=== PATIENT | female | born 1960 | race Caucasian/White ===

== ENCOUNTER 2023-06-13 09:24 | Emergency (ER) | payer SELFPAY ==
[2023-06-13 09:52] LABS: Absolute Lymphocytes (CBC) 2.6 K/uL (0.7-4.9); Hematocrit 39.2 % (36.0-45.0); Lymphocytes % 30.3 % (15.3-44.8); MCV 90.3 fL (80-100); MPV 6.7 fL (7.6-11.3); Platelets 289 thou/uL (152-406); RBC Red Blood Cell Count 4.34 M/uL (3.86-4.86)
--- NOTE | 2023-06-13 09:57 | RAD REPORT ---
EXAM DESCRIPTION: CT - Ct Stroke Brain Wo Cont - 06/13/2023 9:48 am CLINICAL HISTORY: DIZZINESS COMPARISON: No comparisons TECHNIQUE: Noncontrast head CT images were obtained without IV contrast. Multiplanar reformats were generated and reviewed. All CT scans are performed using dose optimization technique as appropriate and may include automated exposure control or mA/KV adjustment according to patient size. FINDINGS: No intracranial hemorrhage, mass, or edema. Midline structures are unremarkable. Normal ventricular caliber for age. Trevizo-white matter differentiation is preserved, without evidence of acute infarct. No abnormal extra- axial fluid collections. Mastoid air cells and visualized portions of the paranasal sinuses are clear. No acute bony findings. IMPRESSION: No evidence of an acute intracranial process. The findings were communicated to Sara Lang on 06/13/2023 at 09:53 hours. taty
[2023-06-13 10:10] LABS: Albumin 3.8 g/dL (3.4-5.0); Bilirubin Direct 0.1 mg/dL (0-0.2); Bilirubin Indirect, Calculated 0.3 mg/dL (0.2-0.8); Bilirubin Total 0.4 mg/dL (0.2-1.0); Protein, Total 7.3 g/dL (6.4-8.2)
[2023-06-13] MEDS ORDERED: NA CHLORIDE 0.9% 1,000 ML ONE (10:14)
[2023-06-13] MEDS ORDERED: MECLIZINE HCL 12.5 MG TAB ONE (10:14)
[2023-06-13] MEDS ORDERED: ONDANSETRON 4 MG/2 ML VIAL ONE (10:14)
--- NOTE | 2023-06-13 10:18 | RAD REPORT ---
EXAM DESCRIPTION: CT - C Spine Wo Con - 06/13/2023 9:49 am CLINICAL HISTORY: Dizziness COMPARISON: None. TECHNIQUE: Axial thin cut noncontrast CT images of the cervical spine were obtained with sagittal an d coronal reconstruction images generated and reviewed. All CT scans are performed using dose optimization technique as appropriate and may include automated exposure control or mA/KV adjustment according to patient size. FINDINGS: Cervical body height are preserved. Straightening of normal cervical lordosis which may be positional or secondary to muscle spasm. Grade 1 anterolisthesis of C3 over C4 measuring 2-3 millimeter. This is secondary to multilevel facet changes most pronounced on the left at C3-4 and C4-5. Other uncovertebral joint and facet arthropath y noted, contributing to at least moderate neural foraminal narrowing on the left at C3-4 and bilater ally at C6-7. Disc height loss noted at C5-6 and C6-7. No fracture or acute bony abnormality. No paraspinal mass or hematoma. IMPRESSION: No acute osseus abnormality. Spondylotic changes as above, with degrees of foraminal na rrowing most pronounced at C3-4 on the left and at C6-7 bilaterally.
[2023-06-13] MEDS ORDERED: FENTANYL CITR 100 MCG/2 ML ONE (10:43)
--- NOTE | 2023-06-13 10:52 | RAD REPORT ---
EXAM DESCRIPTION: RADChest Single View06/13/2023 10:42 am CLINICAL HISTORY: MALAISE COMPARISON: Ct Stroke Brain Wo Cont dated 06/13/2023 TECHNIQUE: Portable AP view of the chest. FINDINGS: The lungs are clear. No pneumothorax or effusion. The cardiomediastinal contours are unre markable. IMPRESSION: No acute cardiopulmonary process.
--- NOTE | 2023-06-13 11:11 | RAD REPORT ---
EXAM DESCRIPTION: CT - Head angio - 06/13/2023 10:46 am CLINICAL HISTORY: Dizziness;Numbness COMPARISON: Ct Stroke Brain Wo Cont dated 06/13/2023 TECHNIQUE: Axial CT angiography images of the head was performed with multiplanar and maximum intens ity projection reconstructions. Images performed following intravenous administration of 100mL Isovue 370. All CT scans are performed using dose optimization technique as appropriate and may include automated exposure control or mA/KV adjustment according to patient size. FINDINGS: No evidence of large vessel occlusion. No evidence of aneurysm or dissection flap is detec karen. No flow-limiting stenosis or vascular malformation identified. Antegrade flow is seen in the vertebral arteries. The vertebral arteries are codominant. The visualized dural venous sinuses are grossly patent. IMPRESSION: No evidence of large vessel occlusion or flow-limiting stenosis.
--- NOTE | 2023-06-13 11:17 | RAD REPORT ---
EXAM DESCRIPTION: CT - Neck Angio - 06/13/2023 10:46 am CLINICAL HISTORY: Headache;Pain;Trauma COMPARISON: C Spine Wo Con dated 06/13/2023 TECHNIQUE: Axial CT angiography images of the head was performed with multiplanar and maximum intens ity projection reconstructions. Images performed following intravenous administration of 100mL Isovue 370. All CT scans are performed using dose optimization technique as appropriate and may include automated exposure control or mA/KV adjustment according to patient size. Quantification of carotid stenosis, if any, is performed according to NASCET criteria. FINDINGS: A left aortic arch is identified with normal three vessel configuration of the great vesse ls. No significant flow abnormality is seen of the common carotid bilaterally. No significant stenosis is identified involving the cervical segments of both internal carotid arteri es. Normal flow is seen within both vertebral arteries. [id number] cervical spine degenerative changes. IMPRESSION: No significant flow abnormality of the neck vessels is identified. CAROTID STENOSIS REFERENCE USING NASCET CRITERIA: % ICA stenosis = (1 - narrowest ICA diameter/diameter of distal cervical ICA) x 100. Mild - <50% stenosis. Moderate - 50-69% stenosis. Severe - 70-94% stenosis. Near occlusion - 95-99% stenosis. Occluded - 100% stenosis.
--- NOTE | 2023-06-13 11:30 | EDPHYS ---
Physician Documentation [facility] Name: Yin Chowdary Age: 62 yrs Sex: Female : 1960 Arrival Date: 06/13/2023 Time: 09:24 Bed 7 Private MD: ED Physician Gianni Gonzalez HPI: 06/13 09:30 This 62 yrs old Female presents to ER via Unassigned with complaints of fall, head jh7 injury, dizziness. 09:30 The patient or guardian reports injury, pain, swelling. The complaints affect the right jh7 side of the back of head and right occipital area. Context of injury: The problem was sustained at home, resulted from a fall, from a standing position. Onset: The symptoms/episode began/occurred acutely. Associated signs and symptoms: Loss of consciousness: This patient did not experience any loss of consciousness. Pertinent positives: headache, nausea, Pertinent negatives: vomiting, weakness in extremities, generalized weakness. Associated signs and symptoms: Pertinent positives: head injury, near-syncope. Patient's baseline: Neuro: alert and fully oriented, Motor: no deficits, Ambulation: unable to walk, Unable to ambulate due to severe dizziness, Speech: normal, The patient has a previous history of hypotension. 62-year-old female who presents to the ER after a fall in the shower 20 minutes ago. The patient reports that she looked up while rinsing her hair and suddenly became severely dizzy. She denies LOC but states that the dizziness caused her to fall, hitting the right occipital portion of her head. She states that she cannot see out of her left eye and that she sees a "white ball". States that dizziness is reproduced by opening her eyes, head movements, and any position changes. She states that she has not vomited but feels extremely nauseous. Denies having a PCP. Reports a history of hypertension but does not take any medications.. Historical: - Allergies: 09:41 No Known Allergies; ph - PMHx: 09:41 Low BP; ph - Immunization history:: Adult Immunizations unknown. - Social history:: Smoking status: unknown. ROS: 09:30 Constitutional: Negative for fever, chills, and weight loss, Eyes: Negative for injury, jh7 pain, redness, and discharge, ENT: Negative for injury, pain, and discharge, 09:30 Cardiovascular: Negative for chest pain, palpitations, and edema, Respiratory: Negative for shortness of breath, cough, wheezing, and pleuritic chest pain, Abdomen/GI: Negative for abdominal pain, nausea, vomiting, diarrhea, and constipation, Back: Negative for injury and pain, MS/Extremity: Negative for injury and deformity, Skin: Negative for injury, rash, and discoloration, 09:30 Neck: Positive for pain with movement, bony tenderness, 09:30 Neuro: Positive for dizziness, gait disturbance, headache, near syncope, visual changes, Negative for altered mental status, numbness, seizure activity, speech changes, tingling, tremor, weakness, 09:30 All other systems are negative, Exam: 09:30 Eyes: Pupils equal round and reactive to light, extra-ocular motions intact. Lids and jh7 lashes normal. Conjunctiva and sclera are non-icteric and not injected. Cornea within normal limits. Periorbital areas with no swelling, redness, or edema. ENT: Nares patent. No nasal discharge, no septal abnormalities noted. Tympanic membranes are normal and external auditory canals are clear. Oropharynx with no redness, swelling, or masses, exudates, or evidence of obstruction, uvula midline. Mucous membranes moist. 09:30 Cardiovascular: Regular rate and rhythm with a normal S1 and S2. No gallops, murmurs, or rubs. Normal PMI, no JVD. No pulse deficits. Respiratory: Lungs have equal breath sounds bilaterally, clear to auscultation and percussion. No rales, rhonchi or wheezes noted. No increased work of breathing, no retractions or nasal flaring. Abdomen/GI: Soft, non-tender, with normal bowel sounds. No distension or tympany. No guarding or rebound. No evidence of tenderness throughout. Back: No spinal tenderness. No costovertebral tenderness. Full range of motion. Skin: Warm, dry with normal turgor. Normal color with no rashes, no lesions, and no evidence of cellulitis. MS/ Extremity: Pulses equal, no cyanosis. Neurovascular intact. Full, normal range of motion. 09:30 Constitutional: The patient appears alert, awake, uncomfortable, 09:30 Head/face: Noted is hematoma, that is moderate, of the right occipital area, 09:30 Neck: C-spine: vertebral tenderness, that is mild, appreciated at C6 and C7, ROM/movement: limited range of motion, that is mild, in any direction, 09:30 Neuro: Orientation: is normal, to person, place, time \\T\\ situation. Mentation: is normal, Memory: is normal, Cranial nerves: Speech is clear and appropriate. Unable to test visual buck due to severe dizziness when the patient opens her eyes., Cerebellar function: unable to test, Patient states she cannot participate or open her eyes due to severe dizziness, Motor: is normal, Sensation: is normal, Gait: unable to assess, Patient states she is unable to walk due to dizziness, Vital Signs: 09:35 BP 138 / 89; Pulse 115; Resp 24; Temp 97; Pulse Ox 99% on R/A; Weight 65.77 kg; Height ph 5 ft. 6 in. ; 11:07 BP 124 / 72; Pulse 82; Resp 16 S; Temp 97.7; Pulse Ox 100% on R/A; kc6 12:03 BP 133 / 68; Pulse 78; Resp 18; Temp 98; Pulse Ox 99% on R/A; ph 09:35 Body Mass Index 23.40 (65.77 kg, 167.64 cm) ph NIH Stroke Scale Scores: 09:30 NIHSS Score: 1 jh7 09:32 NIHSS Score: 1 ph [place] Coma Score: 09:30 Eye Response: spontaneous(4). Motor Response: obeys commands(6). Verbal Response: jh7 oriented(5). Total: 15. 11:49 Eye Response: spontaneous(4). Motor Response: obeys commands(6). Verbal Response: jh7 oriented(5). Total: 15. MDM: 09:36 Patient medically screened. jh7 10:01 ED course: Spoke to the patient's daughter who reports that her mother just told her jh7 that symptoms actually started last night. The patient states that she became dizzy and fell in the kitchen as well.. 11:49 Differential diagnosis: Contusion of Hematoma on Intracranial bleed- Acute CVA, TIA, jh7 vertigo. Differential diagnosis: hypovolemia, idiopathic dizziness, near-syncope. Data reviewed: vital signs, nurses notes, lab test result(s), EKG, radiologic studies, CT scan, plain films. I considered the following discharge prescriptions or medication management in the emergency department Medications were administered in the Emergency Department. See MAR. Independent interpretation of the following test(s) in the Emergency Department EKG: See my EKG interpretation above. Discussion of test interpretation with radiology: I had a discussion with radiology regarding a test interpretation. Radiologist called to inform no acute findings on CT brain. Historians other than the Patient: Friend: . Counseling: I had a detailed discussion with the patient and/or guardian regarding the historical points, exam findings, and any diagnostic results supporting the discharge/admit diagnosis, the need for outpatient follow up, Ophthalmology, If visual changes persist, to return to the emergency department if symptoms worsen or persist or if there are any questions or concerns that arise at home. Response to treatment: the patient's symptoms have markedly improved after treatment. ED course: The patient's symptoms nearly completely resolved after IV fluids and medication administration. She was able to ambulate with very little difficulty. She states that the vision in her left eye significantly improved and that she only had slight blurriness. If her symptoms return, or visual changes persist, ophthalmology follow-up was recommended. Educated the patient on strokelike symptoms, and if she experiences any of these, she should return to the ER immediately for evaluation.. 10 09:35 Order name: Basic Metabolic Panel; Complete Time: 10:11 [facility] 06/13 09:35 Order name: CBC with Diff; Complete Time: 09:59 7 06/13 09:35 Order name: LFT's; Complete Time: 10:11 [facility] 06/13 09:35 Order name: Magnesium; Complete Time: 10:11 [facility] 06/13 09:35 Order name: NT PRO-BNP; Complete Time: 10:11 [facility] 06/13 09:35 Order name: PT-INR; Complete Time: 09:59 7 06/13 09:35 Order name: Troponin HS; Complete Time: 10:11 [facility] 06/13 09:46 Order name: Glucose, Ancillary Testing; Complete Time: 09:51 EDMS 06/13 09:35 Order name: XRAY Chest (1 view); Complete Time: 11:07 [facility] 06/13 09:40 Order name: Ct Stroke Brain Wo Cont; Complete Time: 09:59 EDMS 06/13 09:41 Order name: C Spine Wo Con; Complete Time: 10:18 EDMS 06/13 10:18 Order name: CT Head Angio; Complete Time: 11:22 [facility] 06/13 10:18 Order name: CT Neck Angio; Complete Time: 11:22 [facility] 06/13 09:35 Order name: EKG; Complete Time: 09:36 [facility] 06/13 09:35 Order name: Cardiac monitoring; Complete Time: 09:53 [facility] 06/13 09:35 Order name: EKG - Nurse/Tech; Complete Time: 09:53 [facility] 06/13 09:35 Order name: IV Saline Lock; Complete Time: 09:48 [facility] 06/13 09:35 Order name: Labs collected and sent; Complete Time: 09:48 [facility] 06/13 09:35 Order name: O2 Per Protocol; Complete Time: 09:48 [facility] 06/13 09:35 Order name: O2 Sat Monitoring; Complete Time: 09:48 [facility] 06/13 09:36 Order name: FSBS; Complete Time: 09:40 [facility] 06/13 10:53 Order name: Recheck Vital Signs; Complete Time: 11:08 [facility] 06/13 11:28 Order name: Misc. Order: ambulate patient; Complete Time: 11:40 7 EC:38 Rate is 108 beats/min. Rhythm is regular. QRS [place] is Normal. OR interval is normal at jh7 154 msec. QRS interval is normal at 78 msec. QT interval is normal at 354 msec. No Q waves. T waves are Normal. No ST changes noted. Clinical impression: Sinus tachycardia. Administered Medications: 09:40 Drug: Ondansetron IVP 4 mg IVP once; over 2 minutes Route: IVP; Site: left antecubital; ph 10:05 Follow up: Response: No adverse reaction; Nausea is decreased; Vomiting decreased kc6 10:24 Drug: NS 0.9% IV 1000 ml IV at 1 bolus Per protocol; 1000 mL bolus Route: IV; Rate: 1 ph bolus; Site: left antecubital; 11:08 Follow up: Response: No adverse reaction; IV Status: Completed infusion; IV Intake: kc6 1000ml 10:24 Drug: Meclizine PO 25 mg PO once Route: PO; ph 11:08 Follow up: Response: No adverse reaction kc6 10:34 Drug: fentaNYL (PF) IVP 50 mcg IVP once Route: IVP; Site: left antecubital; kc6 11:08 Follow up: Response: No adverse reaction; Pain is decreased kc6 Point of Care Testing: Blood Glucose: 09:37 Blood Glucose: 74 mg/dL; ph Ranges: Critical Glucose Levels:Adult <50 mg/dl or >400 mg/dl <40 mg/dl or >180 mg/dl Disposition: 10:59 I was immediately available on-site in the Emergency Department for consultation in the tx3 care of the patient. Disposition Summary: 06/13/23 11:29 Discharge Ordered Notes: Location: Home [facility] Problem: new [facility] Symptoms: have improved [facility] Condition: Stable [facility] Diagnosis - Other peripheral vertigo, left ear [facility] - Contusion of scalp [facility] Followup: [facility] - With: Private Physician - When: 2 - 3 days - Reason: Recheck today's complaints Discharge Instructions: - Discharge Summary Sheet [facility] - Benign Positional Vertigo [facility] - Dizziness [facility] - Vertigo [facility] Forms: - Medication Reconciliation Form [facility] - Thank You Letter [facility] - Patient Portal Instructions [facility] - Leadership Thank You Letter [facility] Prescriptions: - Meclizine 25 mg Oral Tablet - take 1 tablet ORAL route every 8 hours As needed; 30 tablet; Refills: 0, jh7 Product Selection Permitted NIH Stroke Scale - NIH Stroke Score Date: 06/13/2023 Time: 09:30 Total Score = 1 10. Dysarthria (speech clarity - read or repeat words) - 0(Normal) 11. Extinction and Inattention (visual/tactile/auditory/spatial/personal) - 0(No abnormality) 1a. Level of Consciousness (LOC) - 0(Alert) 1b. Level of Consciousness (LOC) (Month \\T\\ Age) - 0(Both) 1c. LOC Commands (Open \\T\\ Closes Eyes/Pantograph I Engraver) - 0(Both) 2. Best Gaze (Lateral Gaze Paresis) - 0(Normal) 3. Visual Field Loss - 1(Partial hemianopia) 4. Facial Palsy - 0(Normal) 5a. Left Arm: Motor (10-second hold) - 0(No drift) 5b. Right Arm: Motor (10-second hold) - 0(No drift) 6a. Left Leg: Motor (5-second hold - always test supine) - 0(No drift) 6b. Right Leg: Motor (5-second hold - always test supine) - 0(No drift) 7. Limb Ataxia (finger/nose \\T\\ heel/hendrickson - test with eyes open) - 0(Absent) 8. Sensory Loss (pinprick arms/legs/face) - 0(Normal) 9. Best Language: Aphasia (description/naming/reading) - 0(No aphasia) Initials: jh7 NIH Stroke Scale - NIH Stroke Score Date: 06/13/2023 Time: 09:32 Total Score = 1 10. Dysarthria (speech clarity - read or repeat words) - 0(Normal) 11. Extinction and Inattention (visual/tactile/auditory/spatial/personal) - 0(No abnormality) 1a. Level of Consciousness (LOC) - 0(Alert) 1b. Level of Consciousness (LOC) (Month \\T\\ Age) - 0(Both) 1c. LOC Commands (Open \\T\\ Closes Eyes/Pantograph I Engraver) - 0(Both) 2. Best Gaze (Lateral Gaze Paresis) - 0(Normal) 3. Visual Field Loss - 1(Partial hemianopia) 4. Facial Palsy - 0(Normal) 5a. Left Arm: Motor (10-second hold) - 0(No drift) 5b. Right Arm: Motor (10-second hold) - 0(No drift) 6a. Left Leg: Motor (5-second hold - always test supine) - 0(No drift) 6b. Right Leg: Motor (5-second hold - always test supine) - 0(No drift) 7. Limb Ataxia (finger/nose \\T\\ heel/hendrickson - test with eyes open) - 0(Absent) 8. Sensory Loss (pinprick arms/legs/face) - 0(Normal) 9. Best Language: Aphasia (description/naming/reading) - 0(No aphasia) Initials: ph Signatures: Dispatcher [employer] EDMS Farida Leo, RN RN ph Gianni Gonzalez DO DO ms3 Sara Castillo, COP EXAMINER COP EXAMINER jh7 Stefania Shay RN RN kc6 Corrections: (The following items were deleted from the chart) 09:39 09:36 Head C Spine MPR Wo Con+CT.RAD.BRZ ordered. EDMS EDMS 09:41 09:41 PMHx: None; ph ph
--- NOTE | 2023-06-13 11:30 | ER ---
Nurse's Notes [facility] Name: Yin Chowdary Age: 62 yrs Sex: Female : 1960 Arrival Date: 06/13/2023 Time: 09:24 Bed 7 Private MD: Diagnosis: Other peripheral vertigo, left ear;Contusion of scalp Presentation: 06/13 09:35 Chief complaint: Patient states: Sudden onset of dizziness while taking a shower, states, " I tilted my head back to rinse my hair and got dizzy" Fell in shower and hit back of head, no LOC, c/o dizziness, nausea, headache to L side of head, blurred vision in L eye, states, " There is a white spot in my eye". Coronavirus screen: Vaccine status: Patient reports receiving the 2nd dose of the covid vaccine. Ebola Screen: No symptoms or risks identified at this time. Initial Sepsis Screen: Does the patient meet any 2 criteria? No. Patient's initial sepsis screen is negative. Does the patient have a suspected source of infection? No. Patient's initial sepsis screen is negative. Risk Assessment: Do you want to hurt yourself or someone else? Patient reports no desire to harm self or others. 09:35 Method Of Arrival: Wheelchair 09:35 Acuity: SHIELA 2 ph 09:42 No acute neurological deficit is noted. Pre-hospital glucose is not applicable to this patient. Onset of symptoms was June 13, 2023. Triage Assessment: 09:43 The onset of the patients symptoms was less than three hours ago. General: Appears in ph no apparent distress. uncomfortable, Behavior is cooperative, anxious. Pain: Complains of pain in left frontal area, left temporal area and left ear. Neuro: Level of Consciousness is awake, alert, obeys commands, Oriented to person, place, time, situation, Hogshead Mat Inspector are equal bilaterally Moves all extremities. Speech is normal, Facial symmetry appears normal, Reports blurred vision in left eye dizziness, headache in left parietal area, frontal area, Denies weakness paresthesias numbness. Cardiovascular: Capillary refill < 3 seconds in bilateral fingers. Respiratory: Airway is patent Respiratory effort is even, unlabored. GI: Reports nausea. Derm: Skin is pink, warm \\T\\ dry. Injury Description: Head injury sustained to right occipital area. Stroke Activation: Symptom onset < 3 hours Physician: Stroke Attending; Name: ; Notified At: ; Arrived At: Physician: Chief Stroke Resident; Name: ; Notified At: ; Arrived At: Physician: Stroke Resident; Name: ; Notified At: ; Arrived At: Physician: ED Attending; Name: Lisa/Jonathan; Notified At: 09:35; Arrived At: 09:30 Physician: ED Resident; Name: ; Notified At: ; Arrived At: Historical: - Allergies: 09:41 No Known Allergies; ph - PMHx: :41 Low BP; ph - Immunization history:: Adult Immunizations unknown. - Social history:: Smoking status: unknown. Screenin:41 [facility] ED Fall Risk Assessment (Adult) History of falling in the last 3 months, ph including since admission No falls in past 3 months (0 pts) Confusion or Disorientation No (0 pts) Intoxicated or Sedated No (0 pts) Impaired Gait Yes (1 pt) Mobility Assist Device Used No (0 pt) Altered Elimination No (0 pt) Score/Fall Risk Level 0 - 2 = Low Risk Oriented to surroundings, Maintained a safe environment, Hourly rounding (assess needs \\T\\ fall precautionary measures) done. Abuse screen: Denies threats or abuse. Denies injuries from another. Nutritional screening: No deficits noted. Tuberculosis screening: No symptoms or risk factors identified. Assessment: 09:32 Reassessment: ERP at bedside to assess pt. ph 09:34 VAN Scoring: Arm Drift: Patients demonstrates NO arm weakness. Patient is VAN Negative. ph General:. 09:35 Reassessment: Activated code stroke. ph 09:40 Reassessment: Pt taken to CT via stretcher by NEVAEH Aguiar. ph 10:40 Reassessment: Patient appears in no apparent distress at this time. No changes from kc6 previously documented assessment. Patient and/or family updated on plan of care and expected duration. Pain level reassessed. Patient is alert, oriented x 3, equal unlabored respirations, skin warm/dry/pink. 11:40 Reassessment: Patient appears in no apparent distress at this time. Patient and/or ph family updated on plan of care and expected duration. Pain level reassessed. Patient is alert, oriented x 3, equal unlabored respirations, skin warm/dry/pink. Pt ambulated in hallway, reports slight dizziness but reports that symptoms have greatly improved Patient states feeling better. Vital Signs: 09:35 BP 138 / 89; Pulse 115; Resp 24; Temp 97; Pulse Ox 99% on R/A; Weight 65.77 kg; Height ph 5 ft. 6 in. ; 11:07 BP 124 / 72; Pulse 82; Resp 16 S; Temp 97.7; Pulse Ox 100% on R/A; kc6 12:03 BP 133 / 68; Pulse 78; Resp 18; Temp 98; Pulse Ox 99% on R/A; ph 09:35 Body Mass Index 23.40 (65.77 kg, 167.64 cm) ph [place] Coma Score: 09:30 Eye Response: spontaneous(4). Motor Response: obeys commands(6). Verbal Response: jh7 oriented(5). Total: 15. 11:49 Eye Response: spontaneous(4). Motor Response: obeys commands(6). Verbal Response: jh7 oriented(5). Total: 15. NIH Stroke Scale Scores: 09:30 NIHSS Score: 1 jh7 09:32 NIHSS Score: 1 ph ED Course: 09:25 Patient arrived in ED. em1 09:28 Gianni Gonzalez DO is Attending Physician. ms3 09:35 [facility] jh7 09:35 Farida Leo, RN is Primary Nurse. ph 09:36 Inserted saline lock: 22 gauge in left antecubital area, using aseptic technique. ph 09:38 Triage completed. ph 09:42 Arm band placed on. ph 09:42 Patient has correct armband on for positive identification. Call light in reach. Side ph rails up X 1. Client placed on continuous cardiac and pulse oximetry monitoring. NIBP monitoring applied. 09:50 Ct Stroke Brain Wo Cont In Process Unspecified. EDMS 09:50 C Spine Wo Con In Process Unspecified. EDMS 10:43 XRAY Chest (1 view) In Process Unspecified. EDMS 10:47 CT Head Angio In Process Unspecified. EDMS 10:47 CT Neck Angio In Process Unspecified. EDMS 12:03 No provider procedures requiring assistance completed. IV discontinued, intact, ph bleeding controlled, No redness/swelling at site. Pressure dressing applied. Administered Medications: 09:40 Drug: Ondansetron IVP 4 mg IVP once; over 2 minutes Route: IVP; Site: left antecubital; ph 10:05 Follow up: Response: No adverse reaction; Nausea is decreased; Vomiting decreased kc6 10:24 Drug: NS 0.9% IV 1000 ml IV at 1 bolus Per protocol; 1000 mL bolus Route: IV; Rate: 1 ph bolus; Site: left antecubital; 11:08 Follow up: Response: No adverse reaction; IV Status: Completed infusion; IV Intake: kc6 1000ml 10:24 Drug: Meclizine PO 25 mg PO once Route: PO; ph 11:08 Follow up: Response: No adverse reaction kc6 10:34 Drug: fentaNYL (PF) IVP 50 mcg IVP once Route: IVP; Site: left antecubital; kc6 11:08 Follow up: Response: No adverse reaction; Pain is decreased kc6 Medication: 09:47 VIS not applicable for this client. ph Point of Care Testing: Blood Glucose: 09:37 Blood Glucose: 74 mg/dL; ph Ranges: Intake: 11:08 IV: 1000ml; Total: 1000ml. kc6 Outcome: 11:29 Discharge ordered by jh7 12:03 Discharged to home via wheelchair, with family, ph 12:03 Condition: good 12:03 Discharge instructions given to patient, family, Instructed on discharge instructions, follow up and referral plans. medication usage, Demonstrated understanding of instructions, follow-up care, medications, Prescriptions given X 1, 12:04 Patient left the ED. NIH Stroke Scale - NIH Stroke Score Date: 06/13/2023 Time: 09:30 Total Score = 1 10. Dysarthria (speech clarity - read or repeat words) - 0(Normal) 11. Extinction and Inattention (visual/tactile/auditory/spatial/personal) - 0(No abnormality) 1a. Level of Consciousness (LOC) - 0(Alert) 1b. Level of Consciousness (LOC) (Month \\T\\ Age) - 0(Both) 1c. LOC Commands (Open \\T\\ Closes Eyes/Leather Coater) - 0(Both) 2. Best Gaze (Lateral Gaze Paresis) - 0(Normal) 3. Visual Field Loss - 1(Partial hemianopia) 4. Facial Palsy - 0(Normal) 5a. Left Arm: Motor (10-second hold) - 0(No drift) 5b. Right Arm: Motor (10-second hold) - 0(No drift) 6a. Left Leg: Motor (5-second hold - always test supine) - 0(No drift) 6b. Right Leg: Motor (5-second hold - always test supine) - 0(No drift) 7. Limb Ataxia (finger/nose \\T\\ heel/hendrickson - test with eyes open) - 0(Absent) 8. Sensory Loss (pinprick arms/legs/face) - 0(Normal) 9. Best Language: Aphasia (description/naming/reading) - 0(No aphasia) Initials: 7 NIH Stroke Scale - NIH Stroke Score Date: 06/13/2023 Time: 09:32 Total Score = 1 10. Dysarthria (speech clarity - read or repeat words) - 0(Normal) 11. Extinction and Inattention (visual/tactile/auditory/spatial/personal) - 0(No abnormality) 1a. Level of Consciousness (LOC) - 0(Alert) 1b. Level of Consciousness (LOC) (Month \\T\\ Age) - 0(Both) 1c. LOC Commands (Open \\T\\ Closes Eyes/Leather Coater) - 0(Both) 2. Best Gaze (Lateral Gaze Paresis) - 0(Normal) 3. Visual Field Loss - 1(Partial hemianopia) 4. Facial Palsy - 0(Normal) 5a. Left Arm: Motor (10-second hold) - 0(No drift) 5b. Right Arm: Motor (10-second hold) - 0(No drift) 6a. Left Leg: Motor (5-second hold - always test supine) - 0(No drift) 6b. Right Leg: Motor (5-second hold - always test supine) - 0(No drift) 7. Limb Ataxia (finger/nose \\T\\ heel/hendrickson - test with eyes open) - 0(Absent) 8. Sensory Loss (pinprick arms/legs/face) - 0(Normal) 9. Best Language: Aphasia (description/naming/reading) - 0(No aphasia) Initials: ph Signatures: Dispatcher [employer] El Villagran em1 Farida Leo RN RN ph Gonzalez, Gianni, DO ms3 Sara Castillo, INSTRUCTOR WATCH ASSEMBLY INSTRUCTOR WATCH ASSEMBLY jh7 Stefania Shay RN RN kc6 Corrections: (The following items were deleted from the chart) 09:41 09:41 PMHx: None; ph ph
[2023-06-13 12:36] VITALS: BP 133/68; TEMP 98; O2SAT 99
== END 2023-06-13 12:04 | disposition home or self-care (01) ==
LOC: ER 09:24
DX: H81.392 Other peripheral vertigo, left ear (principal); S00.03XA Contusion of scalp, initial encounter
CPT/HCPCS: 36415; 70450; 70496; 70498; 71045; 72125; 80048; 80076; 82947; 83735; 83880; 84484; 85025; 85610; 93005; 96361; 96374; 96375; 99285; J2405; J3010; J7030; J8597; Q9967

== ENCOUNTER 2023-08-07 06:45 | Emergency (ER) | payer SELFPAY ==
--- OUTSIDE RECORDS SUMMARY | 2023-08-07 06:49 | XMS REPORT | Continuity of Care Document ---
:1960 Author Organization [facility] t Address [address] [place] [address] Care Team Providers Name Role Phone Martin Reece MD Primary Care Physician [phone] Payers Payer Name Policy Type Policy Number Effective Date Expiration Date S ource Problems This patient has no known problems. Allergies, Adverse Reactions, Alerts Allergy Allergy Status Severity Reaction(s) Onset Inactive Treating Comm ents Source Name Type Date Date Clinician [place] DA Active [place] [facility] 10-28 [place] 00:00: [facility] Social History Social Habit Start Date Stop Date Quantity Comments Source Sexual orientation Method [facility] Sex Assigned At [birth year] [facility] 00:00:00 00:00:00 Smoking Status Start Date Stop Date Source Tobacco smoking consumption unknown [facility] Medications This patient has no known medications. Procedures This patient has no known procedures. Plan of Care Planned Activity Planned Date Details Comments Source Future Scheduled 2023-07-[address] [facility] Test 16:15:12 SCREENING [code = BREAST CANCER SCREENING] Future Scheduled 2023-07-[address] [facility] Test 16:15:12 malignant neoplasm of colon (procedure) [code = 625319617] Future Scheduled 2023-07-[address] [facility] Test 16:15:12 malignant neoplasm of colon (procedure) [code = 295979969] Future Scheduled 2023-07-04 [facility]:12 (1 of 2) [code = SHINGLES VACCINES (1 of 2)] Future Scheduled 2023-07-04 [facility]UENZA [facility]ACCINE [facility] 16:15:12 (#1) [code = INFLUENZA VACCINE (#1)] Future Scheduled 2023-07-04 Screening for [facility] Test 16:15:12 malignant neoplasm of colon (procedure) [code = 771944441] Future Scheduled 2023-07-04 Screening for [facility] Test 16:15:12 malignant neoplasm of colon (procedure) [code = 367787072] Future Scheduled 2023-07-04 Screening for [facility] Test 16:15:12 malignant neoplasm of colon (procedure) [code = 439383698] Future Scheduled 2023-07-04 [facility]:12 (#1) [code = COVID-19 VACCINE (#1)] Future Scheduled 2023-07-04 Screening [facility] Test 16:15:12 malignant neoplasm of cervix (procedure) [code = 145178533] Results This patient has no known results. Notes Date/Time Note Provider Source 2018-11-27 10:34:00 [id number] [place] [id number] PATIENT NAME: MAT OROZCO ADMIT DATE: 11/27/18ACCOUNT NO: [id number] ROOM NO: AGE: 58 REPORT TYPE: OPERATIVE REPORT SEX: F ADMITTING PHYSICIAN: ATTENDING PHYSICIAN:Martin Reece MD OPERATION DATE: 11/27/2018 PREOPERATIVE DIAGNOSES:1. Right second hammertoe deformity.2. Right hallux valgus deformity. POSTOPERATIVE DIAGNOSES:1. Right second hammerto e deformity.2. Right hallux valgus deformity. PROCEDURES PERFORMED:1. Right second hammertoe correction with proximal interphalangeal jointfusion.2. Right hallux valgus deformity correction with Frank osteotomy. SURGEON: Martin Reece MD CLIMATOLOGIST: Dr. Kane Poe. ANESTHESIA: General plus local. BLOOD LOSS: Minimal. SPECIMENS: None. COMPLICATIONS: None. DISPOSITION: The patient was taken to the recovery room in stable condition anddischarged to home with followup. INDICATIONS FOR THE OPERATION: The patient is a 58-year-old female with theaforementioned problems in her right forefoot that have become unresponsive tononoperative management. She presents today electively for the aforementionedprocedures. PROCEDURE IN DETAIL: After obtaining the proper informed consent, discussingrisks and benefits o f surgery, the patient was given preoperative antibiotics inthe holding area. The correct foot was identified and signed. She was taken tothe operating room and was placed on the operating table in supine position. She was placed under general anesthesia by the anesthesiologist without anycomplications. A right calf tournique t was applied. We then performed a rightankle bloc k with 30 mL of 0.5% Marcaine plain. Right foot an d ankle were then PATIENT NAME: MAT OROZCO prepped and draped in a sterile fashion. The foot was elevated, exsanguinatedwith an Esmarch, and tourniquet inflated to 250 mmHg. A medial incision wasmade at the hallux proximal phalanx being careful to protect any importantneurovascular structures. A n Frank osteotomy was then performed, protecting theflexor hallucis longus tendon. A 4-mm wedge o f bone was then removed and theosteotomy was stabilized with a Holland compression staple wit h good fixation. There was no more impingement now on the second toe. Next an elliptical dorsal incision was made over the second toe PIP joint,removing the callus with the incision. We then removed the distal portion ofthe proximal phalanx and the base of the middle phalanx with a sagittal saw androngeur respectively. We then stabilized the PIP joint in the correctedpositio n with a Holland 2.0 partially threaded headless screw in a retrogradefashion through a small sta b incision at the tip of the toe under radiographicguidance. The hammertoe deformity wa s now well corrected. The wounds were thenirrigate d and closed in the usual fashion and then sterilely dressed with abulky soft dressing. The tourniquet was let down and the toes were wellperfused at that time. The patient tolerated procedure well. She awoke fromgeneral anesthesia without any complication. She was placed on her hospitalbed, taken to the recovery room in stabl e condition. She will be dischargedhome with followup. Dictated By: Martin Reece MD WT: OP:Y.HIM/BLODA/NTSDD: 11/27/2018 10:34:45DT: 11/27/2018 13:07:49Conf#: [id number]/DID#: [id number] Authenticated by Martin Reece MD On 9 06:53:34 AM at 0653 PATIENT NAME: MAT OROZCO LYNN [id number] i lable for patient [id number]:58 2018-11-27 09:03:00 [id number]:03:00 [facility] ([facility]Brief Op NoteREPORT#:[id number] REPORT STATUS: SignedDATE:11/27/18 TIME: 902 PATIENT: MAT OROZCO LYNN UNIT #: [id number]#: [id number] ROOM/BED:: 62 AGE: 58 SEX: F [facility]END[facility] AUTHOR: Martin Reece MD * ALL edits or amendments must be made on the electronic/computer document * Op/Inv Proc Note - BriefPre-procedure diagnosis:right bunionright 2nd HTPost-procedure diagnosis: same as pre procedure dxProcedures performed:right bunion correctionright 2nd HTRPrimary Surgeon:HéctoreAssistant(s): LuiFindings:see dictationComplications: noneEstimated blood loss in ml's: 15Specimens removed/altered: right 2nd HT, hallux prox phalanx bone wedge Electronicall y Signed by Martin Reece MD on 11/27/18 a t 1031 RPT #:[id number] OF REPORT OPOperative [id number]:03:[id number] a ilable for patient [id number]:31:46 2018-10-28 09:17:00 [id number] [address] [place] [id number] PATIENT NAME: MAT OROZCO LYNN ADMIT DATE: ACCOUNT NO: [id number] ROOM NO: AGE: 58 REPOR T TYPE: ELECTROCARDIOGRAM SEX: F ADMITTING PHYSICIAN: ATTENDING PHYSICIAN:Martin Reece MD Order:[id number] Reason : PRE OP CLEARANCE AGE>50Y Test Date/Time Stamp:Sat 09:17:55Blood Pressure : / mmHGVent. Rate : 088 BPM Atrial Rate : 088 BPM P-R Int : 144 ms QRS Dur : 080 ms QT Int : 368 m s P-R-T Axes : 054 -20 036 degrees QTc Int : 445 m s Normal sinus rhythmNormal ECGNo previous ECGs availableConfirmed by JULIO ORANTES MD ([id number]) on 10/30/2018 12:00:30 PM Referred By: Martin Reece Confirmed by:JULIO ORANTES MD at 1200 PATIENT NAME: MAT OROZCO LYNN .[id number] AVAvailable for patient [id number]:00:16
[2023-08-07 07:38] LABS: Absolute Lymphocytes (CBC) 1.4 K/uL (0.7-4.9); Hematocrit 40.3 % (36.0-45.0); Lymphocytes % 11.5 % (15.3-44.8); MCV 92.4 fL (80-100); MPV 6.9 fL (7.6-11.3); Platelets 255 thou/uL (152-406); RBC Red Blood Cell Count 4.36 M/uL (3.86-4.86)
[2023-08-07 08:05] LABS: Albumin 3.9 g/dL (3.4-5.0); Bilirubin Direct 0.1 mg/dL (0-0.2); Bilirubin Indirect, Calculated 0.4 mg/dL (0.2-0.8); Bilirubin Total 0.5 mg/dL (0.2-1.0); Magnesium 2.1 mg/dL (1.6-2.4); Potassium 4.2 mEq/L (3.5-5.1); Protein, Total 7.3 g/dL (6.4-8.2); Troponin High Sensitivity 5.1 pg/mL (<58.9)
--- NOTE | 2023-08-07 08:07 | RAD REPORT ---
EXAM DESCRIPTION: CT - Head C Spine Mpr Wo Con - 08/07/2023 7:51 am CLINICAL HISTORY: Head and neck injury status post fall. Head and neck pain. Syncope COMPARISON: June 13, 2023 TECHNIQUE: Computed axial tomography of the head and cervical spine was obtained. Sagittal and coronal reconstruction was performed. All CT scans are performed using dose optimization technique as appropriate and may include automated exposure control or mA/KV adjustment according to patient size. FINDINGS: An intracranial bleed is not seen. The ventricles are normal in caliber. No significant hypodensity within the brain. An extra-axial fluid collection is not noted. Fluid within the visualized sinuses and mastoids is not seen A cervical fracture is not visualized. No dislocation is noted. Mild anterior subluxation C3 on C4 unchanged. Loss of the normal lordosis of the cervical spine uncha nged. Scoliosis unchanged. Spondylosis involves the cervical spine IMPRESSION: No acute intracranial abnormality is seen. A cervical fracture is not visualized. If the patient continues to have symptoms to suggest intracranial /spinal cord pathology then MRI wou ld be recommended
--- NOTE | 2023-08-07 08:11 | RAD REPORT ---
EXAM DESCRIPTION: CTSpine Lumbar Wo Con08/07/2023 7:53 am CLINICAL HISTORY: Back pain status post fall COMPARISON: None TECHNIQUE: Computed axial tomography lumbar spine was obtained with coronal and sagittal reconstruct ion. All CT scans are performed using dose optimization technique as appropriate and may include automated exposure control or mA/KV adjustment according to patient size. FINDINGS: No fracture is seen. No dislocation Mild anterior subluxation L4 on L5. Spondylosis L4-5 and L5-S1. No high-grade central/foraminal stenosis noted IMPRESSION: No lumbar fracture seen If patient has clinical symptoms to suggest spinal canal pathology then MRI would recommended
--- NOTE | 2023-08-07 08:14 | RAD REPORT ---
EXAM DESCRIPTION: [place] Single View08/07/2023 8:06 am CLINICAL HISTORY: Chest pain COMPARISON: June 2023 FINDINGS: The lungs appear clear of acute infiltrate. The heart is normal size IMPRESSION: No acute abnormalities displayed
--- NOTE | 2023-08-07 08:15 | RAD REPORT ---
EXAM DESCRIPTION: RAD - Knee Right 3 View - 08/07/2023 8:06 am CLINICAL HISTORY: Right knee pain status post injury FINDINGS: No fracture or dislocation is seen.
--- NOTE | 2023-08-07 08:19 | RAD REPORT ---
EXAM DESCRIPTION: RAD - Elbow Right 3 View - 08/07/2023 8:06 am CLINICAL HISTORY: Right elbow pain status post injury FINDINGS: Lucency lateral humeral condyle probably prominent trabecula. Nondisplaced fracture can vázquez ve a similar appearance. Clinical correlation is needed see if patient has point tenderness in this r egion. Small bony/calcific density adjacent to the lateral humeral epicondyle presumably chronic. Elbow joint effusion is not visualized. No dislocation
[2023-08-07] MEDS ORDERED: LIDOCAINE 2% W/EPI 1:200,000 MPF 20 ML VIAL IM ONE (09:34)
[2023-08-07] MEDS ORDERED: ONDANSETRON 4 MG/2 ML VIAL ONE (10:18)
--- NOTE | 2023-08-07 10:38 | RAD REPORT ---
EXAM DESCRIPTION: CT - Chest For Pe Angio - 08/07/2023 10:25 am CLINICAL HISTORY: Chest pain/elevated D-dimer/syncope COMPARISON: None. TECHNIQUE: Dynamically enhanced axial 3 mm thick images of the chest were obtained during administra tion of 100 mL Isovue 370 IV contrast. Coronal and oblique reconstruction images were generated and r eviewed. Exam utilizes a protocol for optimal evaluation of pulmonary arterial tree. Maximum intensity projections 3D imaging was utilized All CT scans are performed using dose optimization technique as appropriate and may include automated exposure control or mA/KV adjustment according to patient size. FINDINGS: A pulmonary embolus is not seen. A thoracic aortic aneurysm is not noted. A pleural effusion is not seen. A pericardial effusion is not seen. A lung consolidation is not present. IMPRESSION: Negative for a pulmonary embolism.
--- NOTE | 2023-08-07 10:41 | RAD REPORT ---
EXAM DESCRIPTION: CT - Abdomen Pelvis W Contrast - 08/07/2023 10:25 am CLINICAL HISTORY: Abdominal pain COMPARISON: none. TECHNIQUE: Computed axial tomography of the abdomen pelvis was obtained. 100 cc Isovue-300 was admin istered intravenously. Oral contrast was not requested which limits evaluation of bowel and appendix All CT scans are performed using dose optimization technique as appropriate and may include automated exposure control or mA/KV adjustment according to patient size. FINDINGS: The liver, spleen, pancreas, adrenal and kidneys appear unremarkable. There is no evidence of diverticulitis. Normal appendix. Hysterectomy. No adnexal mass. Gastric band in place. Cholecystectomy Mild anterior subluxation L4 and L5. Spondylosis L5-S1 IMPRESSION: No acute abnormality is displayed.
--- NOTE | 2023-08-07 10:53 | EDPHYS ---
Physician Documentation [facility] Name: Yin Chowdary Age: 62 yrs Sex: Female : 1960 Arrival Date: 08/07/2023 Time: 06:45 Bed 7 Private MD: ED Physician Gianni Gonzalez HPI: 08/07 07:39 This 62 yrs old Female presents to ER via Ambulatory with complaints of syncope, fall. ms3 07:40 62-year-old female with past medical history of low blood pressure [place] [facility] [place] for syncopal episode that occurred this morning. Patient states she was drinking tea in the room closed-end and she awoke on the floor. Patient states 3 weeks ago she did have a syncopal episode. Patient denies palpitations, shortness of breath, nausea, vomiting. Patient states she is having 5/10 throbbing headache, neck pain, lower back pain. Patient states her lower back pain is worse with movement. Patient denies any alleviating factors. Historical: - Allergies: 06:58 No Known Allergies; vc1 - Home Meds: 06:58 None [Active]; vc1 - PMHx: 06:58 low bp; vc1 - PSHx: 06:58 None; vc1 - Immunization history:: Client reports receiving the Horacio \T\ Horacio single-dose vaccine. - Social history:: Smoking status: Patient denies any tobacco usage or history of. ROS: 07:40 Constitutional: Negative for fever, and chills. ms3 07:40 Cardiovascular: Negative for chest pain, and palpitations. Respiratory: Negative for shortness of breath, cough, wheezing, and pleuritic chest pain, Abdomen/GI: Negative for abdominal pain, nausea, vomiting, diarrhea, and constipation, 07:40 Neck: Positive for pain, 07:40 Skin: Positive for laceration(s), 07:40 Neuro: Positive for headache, syncope, Exam: 07:40 Constitutional: This is a well developed, well nourished patient who is awake, alert, ms3 and in no acute distress. Neck: Trachea midline, no cervical lymphadenopathy. Supple, full range of motion without nuchal rigidity, or vertebral point tenderness. No Meningismus. Chest/axilla: Normal chest wall appearance and motion. Nontender with no deformity. Cardiovascular: Regular rate and rhythm with a normal S1 and S2. No gallops, murmurs, or rubs. Normal PMI, no JVD. No pulse deficits. Respiratory: Lungs have equal breath sounds bilaterally, clear to auscultation and percussion. No rales, rhonchi or wheezes noted. No increased work of breathing, no retractions or nasal flaring. Abdomen/GI: Soft, non-tender, with normal bowel sounds. No distension or tympany. No guarding or rebound. No evidence of tenderness throughout. 07:40 Head/face: Noted is a laceration(s), that is linear, of the scalp, 07:40 ECG was reviewed by the Attending Physician. Vital Signs: 06:59 Weight 65.77 kg; Height 5 ft. 6 in. ; vc1 07:00 BP 121 / 82; Pulse 109; Resp 18; Temp 98.6(O); Pulse Ox 98% on R/A; oe 11:21 BP 116 / 85; Pulse 95; Resp 16; Pulse Ox 98% on R/A; mb9 06:59 Body Mass Index 23.40 (65.77 kg, 167.64 cm) vc1 MDM: 07:18 Patient medically screened. ms3 07:40 Differential diagnosis: arrhythmia vs ICH vs Laceration vs Contusion. ms3 09:43 ED course: On re-evaluation patient states she is having nausea and right sided ms3 abdominal pain. D- dimer elevated. Will obtain CTA chest and CT abd/pelvis. 10:52 Data reviewed: vital signs, nurses notes, lab test result(s), EKG, radiologic studies, ms3 and as a result, I will discharge patient. Consideration of Admission/Observation Escalation of care including admission/observation considered. [place] syncope rule negative. I considered the following discharge prescriptions or medication management in the emergency department Medications were administered in the Emergency Department. See MAR. Independent interpretation of the following test(s) in the Emergency Department CT Scan: My interpretation is CT Head without contrast images reviewed does not reveal ICH. Counseling: I had a detailed discussion with the patient and/or guardian regarding the historical points, exam findings, and any diagnostic results supporting the discharge/admit diagnosis, lab results, radiology results, the need for outpatient follow up, to return to the emergency department if symptoms worsen or persist or if there are any questions or concerns that arise at home. Special discussion: I discussed with the patient/guardian in detail that at this point there is no indication for admission to the hospital. It is understood, however, that if the symptoms persist or worsen the patient needs to return immediately for re-evaluation. ED course: Patient states she would like to be discharged. [place] syncope rule negative. Patient to follow-up with Dr. Krueger and Dr. Maher as discussed. All questions were answered. Return precautions discussed include worsening symptoms, shortness of breath, chest pain, nausea/vomiting, or any other concerns. On reevaluation patient is alert and oriented x4, no apparent distress, nontoxic-appearing, speaking full signs. 08/07 07:19 Order name: Basic Metabolic Panel; Complete Time: 08:56 ms3 08/07 07:19 Order name: CBC with Diff; Complete Time: 08:56 ms3 08/07 07:19 Order name: Hepatic Function; Complete Time: 08:56 ms3 08/07 07:19 Order name: Magnesium; Complete Time: 08:56 ms3 08/07 07:19 Order name: Protime (+inr); Complete Time: 08:56 ms3 08/07 07:19 Order name: Ptt, Activated; Complete Time: 08:56 ms3 08/07 07:19 Order name: Troponin High Sensitivity; Complete Time: 08:56 ms3 08/07 08:56 Order name: D-Dimer; Complete Time: 09:42 ms3 08/07 07:19 Order name: CT Head C Spine; Complete Time: 08:56 ms3 08/07 07:19 Order name: Chest Single View XRAY; Complete Time: 08:56 ms3 08/07 07:19 Order name: CT Lumbar Spine Wo Con; Complete Time: 08:56 ms3 08/07 07:19 Order name: Elbow Right 3 View XRAY; Complete Time: 08:56 ms3 08/07 07:19 Order name: Knee Right 3 View XRAY; Complete Time: 08:56 ms3 08/07 09:42 Order name: CT Chest For PE Angio; Complete Time: 10:45 ms3 08/07 09:49 Order name: Abdomen ; Complete Time: 10:45 EDMS 08/07 07:19 Order name: EKG; Complete Time: 07:19 ms3 08/07 07:19 Order name: Cardiac monitoring; Complete Time: 07:52 ms3 08/07 07:19 Order name: EKG - Nurse/Tech; Complete Time: 07:52 ms3 08/07 07:19 Order name: IV Saline Lock; Complete Time: 07:52 ms3 08/07 07:19 Order name: Labs collected and sent; Complete Time: 07:52 ms3 08/07 07:19 Order name: NPO; Complete Time: 07:52 ms3 08/07 07:19 Order name: O2 Per Protocol; Complete Time: 07:52 ms3 08/07 07:19 Order name: O2 Sat Monitoring; Complete Time: 07:52 ms3 EC:40 Rate is 94 beats/min. Rhythm is regular. QRS [place] is Normal. MI interval is normal. QRS ms3 interval is normal. Clinical impression: Normal ECG. Interpreted by me. Reviewed by me. Administered Medications: 09:00 Drug: Lidocaine-Epinephrine Infiltration -1%: (1:100,000) 10 ml 20 ml Infiltration db once; to bedside Volume: 20 ml; Route: Infiltration; 10:05 Drug: Ondansetron IVP 4 mg IVP once; over 2 minutes Route: IVP; Site: left antecubital; db 11:18 Drug: HYDROcodone-acetaminophen PO 5 mg-325 mg 1 tabs PO once Route: PO; db Disposition Summary: 08/07/23 10:52 Discharge Ordered Notes: Location: Home ms3 Condition: Stable ms3 Diagnosis - Syncope ms3 - Laceration without foreign body of scalp ms3 - Abdominal pain, unspecified ms3 - Nausea ms3 Followup: ms3 - With: Kirby Krueger MD - When: 1 - 2 days - Reason: Recheck today's complaints Followup: ms3 - With: Onur Maher DO - When: 2 - 3 days - Reason: Recheck today's complaints Discharge Instructions: - Discharge Summary Sheet ms3 Forms: - Medication Reconciliation Form ms3 - Thank You Letter ms3 - Antibiotic Education ms3 - Prescription Opioid Use ms3 - Patient Portal Instructions ms3 - Leadership Thank You Letter ms3 Prescriptions: - Ibuprofen 600 mg Oral Tablet - take 1 tablet ORAL route every 6 hours As needed take with food; 30 tablet; ms3 Refills: 0, Product Selection Permitted Signatures: Dispatcher [employer] Gianni Arce DO DO ms3 Mary Jane Mello RN RN vc1 Carissa Hartley, RN RN db Corrections: (The following items were deleted from the chart) 09:49 09:43 Abdomen W/ Con+CT.RAD.BRZ ordered. EDMS EDMS
--- NOTE | 2023-08-07 10:53 | ER ---
Nurse's Notes [facility] Name: Yin Chowdary Age: 62 yrs Sex: Female : 1960 Arrival Date: 08/07/2023 Time: 06:45 Bed 7 Private MD: Diagnosis: Syncope;Laceration without foreign body of scalp;Abdominal pain, unspecified;Nausea Presentation: 08/07 06:57 Chief complaint: Patient states: standing at the kitchen sink drinking tea then the vc1 next thing I know I am waking up on the floor. Coronavirus screen: Vaccine status: Patient reports receiving the 1st dose of the Covid vaccine. Client denies travel out of the [place] in the last 14 days. At this time, the client does not indicate any symptoms associated with coronavirus-19. Ebola Screen: Patient negative for fever greater than or equal to 101.5 degrees Fahrenheit, and additional compatible Ebola Virus Disease symptoms Patient denies exposure to infectious person. Patient denies travel to an Ebola-affected area in the 21 days before illness onset. No symptoms or risks identified at this time. Complicating Factors: The patient fell landing on an outstretched hand. Risk Assessment: Do you want to hurt yourself or someone else? Patient reports no desire to harm self or others. Onset of symptoms was August 07, 2023. 06:57 Method Of Arrival: Ambulatory vc1 06:57 Acuity: SHIELA 2 vc1 06:59 Initial Sepsis Screen: Does the patient meet any 2 criteria? No. Patient's initial vc1 sepsis screen is negative. Does the patient have a suspected source of infection? No. Patient's initial sepsis screen is negative. Triage Assessment: 06:59 General: Appears in no apparent distress. uncomfortable, Behavior is calm, cooperative, vc1 appropriate for age. Pain: Complains of pain in back, right arm and right leg, back of head. EENT: No deficits noted. No signs and/or symptoms were reported regarding the EENT system. Neuro: Level of Consciousness is awake, alert, obeys commands, Oriented to person, place, time, situation, Appropriate for age. Cardiovascular: No deficits noted. Respiratory: Airway is patent Respiratory effort is even, unlabored, Respiratory pattern is regular, symmetrical. GI: No deficits noted. No signs and/or symptoms were reported involving the gastrointestinal system. : No deficits noted. No signs and/or symptoms were reported regarding the genitourinary system. Derm: Wound noted scalp. Musculoskeletal: No deficits noted. No signs and/or symptoms reported regarding the musculoskeletal system. Injury Description: Laceration sustained to scalp. Historical: - Allergies: :58 No Known Allergies; vc1 - Home Meds: 06:58 None [Active]; vc1 - PMHx: :58 low bp; vc1 - PSHx: 06:58 None; vc1 - Immunization history:: Client reports receiving the Horacio \T\ Horacio single-dose vaccine. - Social history:: Smoking status: Patient denies any tobacco usage or history of. Screenin:58 [facility] ED Fall Risk Assessment (Adult) History of falling in the last 3 months, vc1 including since admission Yes- physiologic fall (2 pts) Confusion or Disorientation No (0 pts) Intoxicated or Sedated No (0 pts) Impaired Gait No (0 pts) Mobility Assist Device Used No (0 pt) Altered Elimination No (0 pt) Score/Fall Risk Level 0 - 2 = Low Risk Oriented to surroundings, Maintained a safe environment, Educated pt \T\ family on fall prevention, incl call for assistance when getting out of bed. Abuse screen: Denies threats or abuse. Nutritional screening: No deficits noted. Tuberculosis screening: No symptoms or risk factors identified. Assessment: 07:15 Reassessment: Patient appears in no apparent distress at this time. Patient and/or db family updated on plan of care and expected duration. Pain level reassessed. Patient is alert, oriented x 3, equal unlabored respirations, skin warm/dry/pink. SCALP LACERATION WITH POSITIVE LOC. General: Appears in no apparent distress. comfortable, Behavior is calm, cooperative. Pain: Complains of pain in scalp. Neuro: Level of Consciousness is awake, alert, obeys commands, Oriented to person, place, time, situation. Neuro: Reports dizziness, since THIS AM a syncopal episode. Respiratory: Airway is patent Respiratory effort is even, unlabored, Respiratory pattern is regular, symmetrical. Injury Description: Head injury sustained to scalp. Injury Description: Laceration sustained to scalp is bleeding moderately, BLEEDING CONTROLLED. 07:59 Reassessment: PATIENT IN CT. db 11:21 Reassessment: No changes from previously documented assessment. Patient and/or family mb9 updated on plan of care and expected duration. Pain level reassessed. Patient is alert, oriented x 3, equal unlabored respirations, skin warm/dry/pink. Vital Signs: 06:59 Weight 65.77 kg; Height 5 ft. 6 in. ; vc1 07:00 BP 121 / 82; Pulse 109; Resp 18; Temp 98.6(O); Pulse Ox 98% on R/A; oe 11:21 BP 116 / 85; Pulse 95; Resp 16; Pulse Ox 98% on R/A; mb9 06:59 Body Mass Index 23.40 (65.77 kg, 167.64 cm) vc1 ED Course: 06:51 Patient arrived in ED. gm2 06:58 Triage completed. vc1 06:58 Arm band placed on left wrist. vc1 06:59 Patient has correct armband on for positive identification. Bed in low position. Call vc1 light in reach. Pulse ox on. NIBP on. 07:01 Gianni Gonzalez DO is Attending Physician. ms3 07:24 Carissa Hartley, RN is Primary Nurse. db 07:45 Inserted saline lock: 20 gauge in left antecubital area, using aseptic technique. Blood db collected. 07:53 CT Head C Spine In Process Unspecified. EDMS 07:53 CT Lumbar Spine Wo Con In Process Unspecified. EDMS 08:08 Chest Single View XRAY In Process Unspecified. EDMS 08:08 Elbow Right 3 View XRAY In Process Unspecified. EDMS 08:08 Knee Right 3 View XRAY In Process Unspecified. EDMS 09:00 Assist provider with laceration repair on scalp Set up tray. Performed by Gianni gómez DO Patient tolerated well. 10:26 CT Chest For PE Angio In Process Unspecified. EDMS 10:26 Abdomen In Process Unspecified. EDMS 10:51 Kirby Krueger MD is Referral Physician. ms3 10:51 Onur Maher DO is Referral Physician. ms3 11:16 Provided Education on: LACERATION REPAIR AND STAPLE REMOVAL. db 11:16 IV discontinued, intact, bleeding controlled, No redness/swelling at site. db Administered Medications: 09:00 Drug: Lidocaine-Epinephrine Infiltration -1%: (1:100,000) 10 ml 20 ml Infiltration db once; to bedside Volume: 20 ml; Route: Infiltration; 10:05 Drug: Ondansetron IVP 4 mg IVP once; over 2 minutes Route: IVP; Site: left antecubital; db 11:18 Drug: HYDROcodone-acetaminophen PO 5 mg-325 mg 1 tabs PO once Route: PO; db Medication: 07:01 VIS not applicable for this client. vc1 Outcome: 10:52 Discharge ordered by . ms3 11:16 Discharged to home ambulatory, db 11:16 Condition: stable 11:16 Discharge instructions given to patient, Instructed on discharge instructions, follow up and referral plans. Prescriptions given X 1, 11:22 Patient left the ED. mb9 Signatures: Dispatcher [employer] EDMS Lamar Hernadez, RN RN aa5 Bronson Guy Marcus, DO DO ms3 Mary Jane Mello RN RN vc1 Carissa Hartley RN RN Viktoria Dubon RN RN mb9 Rianna Pierson 2 Corrections: (The following items were deleted from the chart) 07:16 07:04 Lamar Hernadez, RN is Primary Nurse. aa5 aa5 11:15 11:15 No provider procedures requiring assistance completed. db db
[2023-08-07 11:33] VITALS: TEMP 98.6; O2SAT 98
[2023-08-07] MEDS ORDERED: HYDROCODONE/APAP 5/325 MG TAB ONE (11:33)
[2023-08-07 11:59] VITALS: BP 116/85
--- NOTE | 2023-08-08 15:17 | EKG ---
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
== END 2023-08-07 11:22 | disposition home or self-care (01) ==
LOC: ER 06:45
DX: R55 Syncope and collapse (principal); S01.01XA Laceration without foreign body of scalp, initial encounter; R10.9 Unspecified abdominal pain; R11.0 Nausea
CPT/HCPCS: 36415; 70450; 71045; 71275; 72125; 72131; 74177; 80048; 80076; 83735; 84484; 85025; 85379; 85610; 85730; 93005; 96374; 99284; J2405; Q9967

== ENCOUNTER 2023-08-16 06:14 | Emergency (ER) | payer SELFPAY ==
--- NOTE | 2023-08-16 06:37 | EDPHYS ---
Physician Documentation [facility] Name: Yin Chowdary Age: 62 yrs Sex: Female : 1960 Arrival Date: 08/16/2023 Time: 06:14 Bed IW2 Private MD: Chadwick Jennings HPI: 08/16 06:32 This 62 yrs old Female presents to ER via Unassigned with complaints of cain Suture Removal. 06:32 The patient has edson on the scalp. Previous treatment: The patient was initially cain treated 10 day(s) ago. Sutures/edson progress: The patient has no c/o's. The wound is well-healing with no redness, swelling, discharge, or dehiscence reported. The patient has not experienced similar symptoms in the past. Historical: - Allergies: 06:49 PENICILLINS; pf1 - PMHx: 06:49 low bp; Hypoglycemia; pf1 - PSHx: 06:49 Cholecystectomy; pf1 - Immunization history:: Adult Immunizations up to date, Client reports receiving the 1st dose of the Covid vaccine, Last tetanus immunization: > 10 years ago Flu vaccine is not up to date. - Social history:: Smoking status: Patient denies any tobacco usage or history of. Patient/guardian denies using alcohol, street drugs. - Family history:: not pertinent. ROS: 06:34 Constitutional: Negative for fever, chills, and weight loss, Eyes: Negative for injury, cain pain, redness, and discharge, ENT: Negative for injury, pain, and discharge, Neck: Negative for injury, pain, and swelling, Cardiovascular: Negative for chest pain, palpitations, and edema, Respiratory: Negative for shortness of breath, cough, wheezing, and pleuritic chest pain, Abdomen/GI: Negative for abdominal pain, nausea, vomiting, diarrhea, and constipation, Back: Negative for injury and pain, : Negative for injury, bleeding, discharge, and swelling, MS/Extremity: Negative for injury and deformity, Neuro: Negative for headache, weakness, numbness, tingling, and seizure, Psych: Negative for depression, anxiety, suicide ideation, homicidal ideation, and hallucinations, Allergy/Immunology: Negative for hives, rash, and allergies, Endocrine: Negative for neck swelling, polydipsia, polyuria, polyphagia, and marked weight changes, Hematologic/Lymphatic: Negative for swollen nodes, abnormal bleeding, and unusual bruising, 06:34 Skin: Positive for laceration(s), Exam: 06:34 Constitutional: This is a well developed, well nourished patient who is awake, alert, cain and in no acute distress. Eyes: Pupils equal round and reactive to light, extra-ocular motions intact. Lids and lashes normal. Conjunctiva and sclera are non-icteric and not injected. Cornea within normal limits. Periorbital areas with no swelling, redness, or edema. ENT: Nares patent. No nasal discharge, no septal abnormalities noted. Tympanic membranes are normal and external auditory canals are clear. Oropharynx with no redness, swelling, or masses, exudates, or evidence of obstruction, uvula midline. Mucous membranes moist. Neck: Trachea midline, no thyromegaly or masses palpated, and no cervical lymphadenopathy. Supple, full range of motion without nuchal rigidity, or vertebral point tenderness. No Meningismus. Chest/axilla: Normal chest wall appearance and motion. Nontender with no deformity. No lesions are appreciated. Cardiovascular: Regular rate and rhythm with a normal S1 and S2. No gallops, murmurs, or rubs. Normal PMI, no JVD. No pulse deficits. Respiratory: Lungs have equal breath sounds bilaterally, clear to auscultation and percussion. No rales, rhonchi or wheezes noted. No increased work of breathing, no retractions or nasal flaring. Abdomen/GI: Soft, non-tender, with normal bowel sounds. No distension or tympany. No guarding or rebound. No evidence of tenderness throughout. Back: No spinal tenderness. No costovertebral tenderness. Full range of motion. Skin: Warm, dry with normal turgor. Normal color with no rashes, no lesions, and no evidence of cellulitis. MS/ Extremity: Pulses equal, no cyanosis. Neurovascular intact. Full, normal range of motion. Neuro: Awake and alert, GCS 15, oriented to person, place, time, and situation. Cranial nerves II-XII grossly intact. Motor strength 5/5 in all extremities. Sensory grossly intact. Cerebellar exam normal. Normal gait. Psych: Awake, alert, with orientation to person, place and time. Behavior, mood, and affect are within normal limits. 06:34 Head/face: Noted is Vital Signs: 06:45 BP 126 / 90; Pulse 85; Resp 16; Temp 97.1; Pulse Ox 100% ; Weight 65.77 kg; Height 5 pf1 ft. 6 in. ; Pain 0/10; 06:45 Body Mass Index 23.40 (65.77 kg, 167.64 cm) pf1 06:45 Pain Scale: Adult pf1 MDM: 06:20 Patient medically screened. [facility] 06:35 Data reviewed: vital signs, nurses notes. Consideration of Admission/Observation cain Escalation of care including admission/observation considered. I considered the following discharge prescriptions or medication management in the emergency department Medications were administered in the Emergency Department. See MAR. Test considered but Not performed: Labs: no labs. Historians other than the Patient: pt well informed. Care significantly affected by the following chronic conditions: none. Counseling: I had a detailed discussion with the patient and/or guardian regarding the historical points, exam findings, and any diagnostic results supporting the discharge/admit diagnosis, the need for outpatient follow up, for definitive care, a family practitioner. Administered Medications: No medications were administered Disposition Summary: 08/16/23 06:37 Discharge Ordered Notes: Location: Home [facility] Problem: new cain Symptoms: have improved cain Condition: Stable cain Diagnosis - Encounter for removal of sutures - EDSON cain Followup: cain - With: Private Physician - When: 5 - 6 days - Reason: Recheck today's complaints, Re-evaluation by your physician Discharge Instructions: - Discharge Summary Sheet cain - Suture Removal, Care After cain - Incision Care, Adult cain Forms: - Medication Reconciliation Form [facility] - Thank You Letter cain - Antibiotic Education cain - Prescription Opioid Use cain - Patient Portal Instructions [facility] - Leadership Thank You Letter [facility] Signatures: Chadwick Payne MD MD cha Finley, Pamala, RN RN pf1
--- NOTE | 2023-08-16 06:55 | ER ---
Nurse's Notes [facility] Name: iYn Chowdary Age: 62 yrs Sex: Female : 1960 Arrival Date: 08/16/2023 Time: 06:14 Bed IW2 Private MD: Diagnosis: Encounter for removal of sutures-REGLA Presentation: 08/16 06:45 Chief complaint: Patient states: sutural removal to left posterior scalp. Patient pf1 stated had sutures placed on 08/06/23. Coronavirus screen: Vaccine status: Patient reports receiving the 1st dose of the Covid vaccine. Client denies travel out of the [place] in the last 14 days. At this time, the client does not indicate any symptoms associated with coronavirus-19. Ebola Screen: Patient negative for fever greater than or equal to 101.5 degrees Fahrenheit, and additional compatible Ebola Virus Disease symptoms. Initial Sepsis Screen: Does the patient meet any 2 criteria? No. Patient's initial sepsis screen is negative. Does the patient have a suspected source of infection? No. Patient's initial sepsis screen is negative. Risk Assessment: Do you want to hurt yourself or someone else? Patient reports no desire to harm self or others. 06:45 Method Of Arrival: Ambulatory pf1 06:45 Acuity: SHIELA 5 pf1 Triage Assessment: 06:51 General: Appears in no apparent distress. comfortable, well groomed, well developed, pf1 Behavior is calm, cooperative, appropriate for age, quiet. Pain: Denies pain. EENT: No deficits noted. No signs and/or symptoms were reported regarding the EENT system. Neuro: No deficits noted. Level of Consciousness is awake, alert, obeys commands, Oriented to person, place, time, situation. Cardiovascular: No deficits noted. Capillary refill < 3 seconds Patient's skin is warm and dry. Respiratory: No deficits noted. Airway is patent Respiratory effort is even, unlabored, Respiratory pattern is regular, symmetrical. GI: No deficits noted. No signs and/or symptoms were reported involving the gastrointestinal system. : No deficits noted. No signs and/or symptoms were reported regarding the genitourinary system. Derm: sutures removal to left posterior scalp. Historical: - Allergies: 06:49 PENICILLINS; pf1 - PMHx: 06:49 low bp; Hypoglycemia; pf1 - PSHx: 06:49 Cholecystectomy; pf1 - Immunization history:: Adult Immunizations up to date, Client reports receiving the 1st dose of the Covid vaccine, Last tetanus immunization: > 10 years ago Flu vaccine is not up to date. - Social history:: Smoking status: Patient denies any tobacco usage or history of. Patient/guardian denies using alcohol, street drugs. - Family history:: not pertinent. Screenin:53 [facility] ED Fall Risk Assessment (Adult) History of falling in the last 3 months, pf1 including since admission Yes- single mechanical fall (1 pt) Confusion or Disorientation No (0 pts) Intoxicated or Sedated No (0 pts) Impaired Gait No (0 pts) Mobility Assist Device Used No (0 pt) Altered Elimination No (0 pt) Score/Fall Risk Level 0 - 2 = Low Risk Oriented to surroundings, Maintained a safe environment, Educated pt \T\ family on fall prevention, incl call for assistance when getting out of bed, Assessed \T\ reinforced patient's understanding of fall precautions, Provided non-skid footwear, Hourly rounding (assess needs \T\ fall precautionary measures) done, Used ambulatory aids as needed (educated on \T\ assisted with), Used gait belt as appropriate. Abuse screen: Denies threats or abuse. Nutritional screening: No deficits noted. Tuberculosis screening: No symptoms or risk factors identified. Assessment: 06:52 General: see triage assessment. Pain: Denies pain. Neuro: No deficits noted. Level of pf1 Consciousness is awake, alert, obeys commands, Oriented to person, place, time, situation. Cardiovascular: No deficits noted. Capillary refill < 3 seconds Patient's skin is warm and dry. Respiratory: No deficits noted. Airway is patent Respiratory effort is even, unlabored, Respiratory pattern is regular, symmetrical. GI: No deficits noted. No signs and/or symptoms were reported involving the gastrointestinal system. : No deficits noted. No signs and/or symptoms were reported regarding the genitourinary system. EENT: No deficits noted. No signs and/or symptoms were reported regarding the EENT system. Vital Signs: 06:45 BP 126 / 90; Pulse 85; Resp 16; Temp 97.1; Pulse Ox 100% ; Weight 65.77 kg; Height 5 pf1 ft. 6 in. ; Pain 0/10; 06:45 Body Mass Index 23.40 (65.77 kg, 167.64 cm) pf1 06:45 Pain Scale: Adult pf1 ED Course: 06:16 Patient arrived in ED. [email or web address] 06:20 Chadwick Payne MD is Attending Physician. cain 06:30 Wound care: Patient tolerated well. suture removal performed by Dr. Payne. Patient pf1 tolerated well. 06:49 Triage completed. pf1 06:52 Arm band placed on right wrist. pf1 06:54 No provider procedures requiring assistance completed. Patient did not have IV access pf1 during this emergency room visit. 06:55 Patient has correct armband on for positive identification. Provided Education on: pf1 wound care. Administered Medications: No medications were administered Medication: 06:55 VIS not applicable for this client. pf1 Outcome: 06:37 Discharge ordered by . cain 06:54 Discharged to home ambulatory, pf1 06:54 Condition: improved 06:54 Discharge instructions given to patient, Instructed on discharge instructions, follow up and referral plans. Demonstrated understanding of instructions, follow-up care, 06:55 Patient left the ED. pf1 Signatures: Chadwick Payne MD MD cha Jeffries, Jennifer [email or web address] Helen Phelps, RN RN pf1
[2023-08-16 06:59] VITALS: BP 126/90; TEMP 97.1; O2SAT 100
== END 2023-08-16 06:55 | disposition home or self-care (01) ==
LOC: ER 06:14
DX: Z48.02 Encounter for removal of sutures (principal)
CPT/HCPCS: 99283